=== PATIENT | female | born 1970 | race Hispanic/Latino ===

== ENCOUNTER 2020-12-01 08:45 | Inpatient (IN) | payer BC ==
--- NOTE | 2020-12-01 10:10 | RAD REPORT ---
EXAM DESCRIPTION: RAD - Chest Pa And Lat (2 Views) - 12/01/2020 9:50 am CLINICAL HISTORY: Cough;Dyspnearight-sided chest pain, low-grade fever COMPARISON: None TECHNIQUE: Frontal and lateral views of the chest were obtained. FINDINGS: The lungs are underinflated. Patchy opacification is present in the right upper lobe at t he aortic arch level. Interstitial markings are accentuated by the low lung volumes potentially maski ng edema and infiltrate. Heart size is normal and central vasculature is within normal limits. No pl eural effusion or pneumothorax seen. No acute bony finding noted. No aortic abnormality. IMPRESSION: Patchy right upper lobe opacification likely early right upper lobe pneumonia. Continued follow-up is needed after medical match to assureno persistent mass.
[2020-12-01 10:24] LABS: Absolute Lymphocytes (CBC) 0.8 K/uL (0.7-4.9); Basophils % 0.2 % (0-1.3); Hematocrit 44.8 % (36.0-45.0); Lymphocytes % 3.7 % (15.3-44.8); MPV 8.9 fL (7.6-11.3); RBC Red Blood Cell Count 5.04 M/uL (3.86-4.86)
[2020-12-01 10:36] LABS: Potassium 3.6 mmol/L (3.5-5.1)
[2020-12-01 10:54] LABS: Toxic Granulation 2+
[2020-12-01 10:55] LABS: Blood Morphology Comment NOT SEEN (NOT SEEN); Platelet Estimate ADEQ
[2020-12-01] MEDS ORDERED: NA CHLORIDE 0.9% 100 ML ONE (11:03)
[2020-12-01] MEDS ORDERED: CEFTRIAXONE/SWI 1gm 1 GM/10 ML SYR ONE (11:03)
--- NOTE | 2020-12-01 11:11 | ER ---
Nurse's Notes [facility] Name: Manuela Jones Age: 50 yrs Sex: Female : 1970 Arrival Date: 12/01/2020 Time: 08:47 Bed 4 Private MD: Diagnosis: Pneumonia, unspecified organism;Bandemia;Elevated white blood cell count Presentation: 12/01 09:04 Chief complaint: Patient states: SOB, congestion/cough, R sided lung pain for 3 days. ll1 Low grade fever at home. No N/V/D. SOB with exertion. Coronavirus screen: Client denies travel out of the [place] in the last 14 days. chills, congestion, cough unrelated to allergies, difficulty breathing, fatigue, fever, headache, shortness of breath, Client presents with at least one sign or symptom that may indicate coronavirus-19. Standard/surgical mask placed on the client. Ebola Screen: Patient denies travel to an Ebola-affected area in the 21 days before illness onset. Initial Sepsis Screen: Does the patient meet any 2 criteria? HR > 90 bpm. No. Patient's initial sepsis screen is negative. Does the patient have a suspected source of infection? Yes: Productive cough/pneumonia. Risk Assessment: Do you want to hurt yourself or someone else? Patient reports no desire to harm self or others. Onset of symptoms was November 29, 2020. 09:04 Method Of Arrival: Ambulatory [facility] 09:04 Acuity: IDALIA 2 ll1 Triage Assessment: 09:10 General: Appears in no apparent distress. uncomfortable, Behavior is cooperative, bp appropriate for age, anxious. Pain: Complains of pain in chest. EENT: No deficits noted. Neuro: No deficits noted. Cardiovascular: No deficits noted. Respiratory: Reports shortness of breath cough that is. GI: No signs and/or symptoms were reported involving the gastrointestinal system. : No signs and/or symptoms were reported regarding the genitourinary system. Derm: No signs and/or symptoms reported regarding the dermatologic system. Musculoskeletal: No deficits noted. Historical: - Allergies: 09:08 PENICILLINS; ll1 - PMHx: 09:08 Hypertension; Diabetes - IDDM; High Cholesterol; ll1 - PSHx: 09:08 reconstructive ear SX; Tonsillectomy; ll1 - Immunization history:: Client reports receiving the 2nd dose of the Covid vaccine, Flu vaccine is not up to date. - Social history:: Smoking status: Patient denies any tobacco usage or history of. Screenin:10 Abuse screen: Denies threats or abuse. Denies injuries from another. Nutritional bp screening: No deficits noted. Tuberculosis screening: No symptoms or risk factors identified. Fall Risk None identified. Assessment: 09:10 General: SEE TRIAGE. bp 10:30 Reassessment: RUL DEVELOPING PNEUMONIA, PT INFORMED BY LMP. bp 12:00 Reassessment: No changes from previously documented assessment. Patient and/or family bp updated on plan of care and expected duration. Pain level reassessed. Patient is alert, oriented x 3, equal unlabored respirations, skin warm/dry/pink. ADMIT INITIATED. 14:39 Reassessment: ADMIT COMPLETE, REPORT TO SCOOTER RASMUSSEN FOR RM 220. bp Vital Signs: 09:04 BP 165 / 72; Pulse 107; Resp 20; Temp 99.0; Pulse Ox 92% on R/A; Weight 165.56 kg; ll1 Height 5 ft. 9 in. (175.26 cm); Pain 6/10; 10:32 BP 139 / 88; Pulse 102; Resp 18; Pulse Ox 94% ; bp 12:00 BP 116 / 72; Pulse 100; Resp 20; Pulse Ox 93% on R/A; bp 14:00 BP 111 / 63; Pulse 98; Resp 19; Temp 99; Pulse Ox 100% ; bp 09:04 Body Mass Index 53.90 (165.56 kg, 175.26 cm) ll1 ED Course: 08:47 Patient arrived in ED. as 09:07 Triage completed. ll1 09:08 Arm band placed on Patient placed in an exam room, on a stretcher. ll1 09:09 Migel Marie, RN is Primary Nurse. bp 09:10 Patient has correct armband on for positive identification. Bed in low position. Call bp light in reach. Side rails up X2. 09:11 Joan Summers FNP-C is PHCP. kb 09:11 Michael Mccauley MD is Attending Physician. kb 09:50 Chest Pa And Lat (2 Views) XRAY In Process Unspecified. EDMS 10:00 Inserted saline lock: 20 gauge in left forearm, using aseptic technique. Blood bp collected. 11:10 Mingo Redman DO is Hospitalizing Provider. kb 14:40 No provider procedures requiring assistance completed. Patient admitted, IV remains in bp place. Administered Medications: 10:40 Drug: Rocephin (cefTRIAXone) 1 grams Route: IV; Rate: calculated rate; Site: left bp forearm; 11:17 Follow up: IV Status: Completed infusion; IV Intake: 100ml bp 11:17 Drug: Zithromax (azithromycin) 500 mg Route: IVPB; Infused Over: 1 hrs; Site: left bp antecubital; 14:48 Follow up: IV Status: Completed infusion; IV Intake: 250ml bp Intake: 11:17 IV: 100ml; Total: 100ml. bp 14:48 IV: 250ml; Total: 350ml. bp Outcome: 11:10 Decision to Hospitalize by Provider. kb 14:45 Transferred bp 14:45 Admitted to Tele accompanied by tech, via wheelchair, room 220, with chart, Report called to SCOOTER RASMUSSEN 14:45 Condition: stable 14:45 Instructed on the need for admit. 15:01 Patient left the ED. aa5 Signatures: Dispatcher [employer] EDMS Joan Summers, DRAG CAR RACER-C DRAG CAR RACER-Shruthi Obando Audri, RN RN aa5 Migel Marie, VALERY RN Teresita Clinton, VALERY RN ll1
--- NOTE | 2020-12-01 11:11 | EDPHYS ---
Physician Documentation [facility] Name: Manuela Jones Age: 50 yrs Sex: Female : 1970 Arrival Date: 12/01/2020 Time: 08:47 Bed 4 Private MD: ED Physician Michael Mccauley HPI: 12/01 09:29 This 50 yrs old Female presents to ER via Ambulatory with complaints of Cough kb - blood/lung pain. 09:29 The patient or guardian reports cough, that is intermittent, described as moderate, kb with no sputum, difficulty breathing. Onset: The symptoms/episode began/occurred 5 day(s) ago, and became worse yesterday. Severity of symptoms: At their worst the symptoms were moderate, in the emergency department the symptoms are unchanged. Modifying factors: The symptoms are alleviated by nothing, the symptoms are aggravated by nothing. Associated signs and symptoms: The patient has no apparent associated signs or symptoms. The patient has experienced a previous episode. The patient has not recently seen a physician. Pt reports cough, right lung pain, and shortness of breath that started 5 days ago. Hemoptysis started yesterday. Cough worse at night. Denies fever. States she had walking pneumonia a few years ago and this feels the same. Historical: - Allergies: 09:08 PENICILLINS; ll1 - PMHx: 09:08 Hypertension; Diabetes - IDDM; High Cholesterol; ll1 - PSHx: 09:08 reconstructive ear SX; Tonsillectomy; ll1 - Immunization history:: Client reports receiving the 2nd dose of the Covid vaccine, Flu vaccine is not up to date. - Social history:: Smoking status: Patient denies any tobacco usage or history of. ROS: 09:28 Constitutional: Negative for fever, chills, and weight loss. kb 09:28 Respiratory: Positive for cough, dyspnea on exertion, hemoptysis, pleurisy, of the "right lung", shortness of breath. 09:28 All other systems are negative. Exam: 09:28 Constitutional: This is a well developed, well nourished patient who is awake, alert, kb and in no acute distress. Head/Face: Normocephalic, atraumatic. ENT: Moist Mucous membranes Cardiovascular: Regular rate and rhythm with a normal S1 and S2. No gallops, murmurs, or rubs. No pulse deficits. Respiratory: Respirations even and unlabored. No increased work of breathing, no retractions or nasal flaring. Abdomen/GI: Soft, non-tender. No distention Skin: Warm, dry with normal turgor. Normal color. MS/ Extremity: Pulses equal, no cyanosis. Neurovascular intact. Full, normal range of motion. Neuro: Awake and alert, GCS 15, oriented to person, place, time, and situation. Moves all extremities. Normal gait. Psych: Awake, alert, with orientation to person, place and time. Behavior, mood, and affect are within normal limits. Vital Signs: 09:04 BP 165 / 72; Pulse 107; Resp 20; Temp 99.0; Pulse Ox 92% on R/A; Weight 165.56 kg; ll1 Height 5 ft. 9 in. (175.26 cm); Pain 6/10; 10:32 BP 139 / 88; Pulse 102; Resp 18; Pulse Ox 94% ; bp 12:00 BP 116 / 72; Pulse 100; Resp 20; Pulse Ox 93% on R/A; bp 14:00 BP 111 / 63; Pulse 98; Resp 19; Temp 99; Pulse Ox 100% ; bp 09:04 Body Mass Index 53.90 (165.56 kg, 175.26 cm) ll1 MDM: 09:11 Patient medically screened. kb 09:28 Data reviewed: vital signs, nurses notes. Data interpreted: Pulse oximetry: on room air kb is 92 %. Interpretation: acceptable. 11:07 Counseling: I had a detailed discussion with the patient and/or guardian regarding: the kb historical points, exam findings, and any diagnostic results supporting the discharge/admit diagnosis, lab results, radiology results, the need for further work-up and treatment in the hospital. Physician consultation: Mingo Redman DO was contacted at 11:07, regarding admission, to the medical/surgical unit. and will see patient in ED. 12/01 09:16 Order name: CBC with Diff; Complete Time: 11:00 kb 12/01 09:16 Order name: Basic Metabolic Panel; Complete Time: 10:36 kb 12/01 09:16 Order name: D-Dimer; Complete Time: 10:36 kb 12/01 09:16 Order name: Blood Culture Adult (2) kb 12/01 10:30 Order name: Manual Differential; Complete Time: 11:00 EDMS 12/01 11:09 Order name: COVID-19 : Document "Date of Symptom Onset" if Symptomatic. eb 12/01 09:08 Order name: Chest Pa And Lat (2 Views) XRAY; Complete Time: 10:18 kb 12/01 09:16 Order name: IV Start; Complete Time: 10:06 kb 12/01 13:35 Order name: SARS-COV-2 RT PCR; Complete Time: 13:37 EDMS Administered Medications: 10:40 Drug: Rocephin (cefTRIAXone) 1 grams Route: IV; Rate: calculated rate; Site: left bp forearm; 11:17 Follow up: IV Status: Completed infusion; IV Intake: 100ml bp 11:17 Drug: Zithromax (azithromycin) 500 mg Route: IVPB; Infused Over: 1 hrs; Site: left bp antecubital; 14:48 Follow up: IV Status: Completed infusion; IV Intake: 250ml bp Disposition: 17:33 Co-signature as Attending Physician, Michael Mccauley MD. rn Disposition: 12/01/20 11:10 Hospitalization ordered by Mingo Redman for Observation. Preliminary diagnosis are Pneumonia, unspecified organism, Bandemia, Elevated white blood cell count. - Bed requested for Telemetry/MedSurg (observation). - Status is Observation. aa5 - Condition is Stable. - Problem is new. - Symptoms are unchanged. Signatures: Dispatcher [employer] EDRI Joan Summers, RENAL TECHNICIAN-C RENAL TECHNICIAN-Ckb Michael Mccauley MD MD rn Calderon, Audri RN RN aa5 Migel Marie RN RN bp Botello, Elizabeth eb Lewis, Lynsay, RN RN ll1 Corrections: (The following items were deleted from the chart) 14:24 11:10 Hospitalization Ordered by Mingo Redman DO for Observation. Preliminary eb diagnosis is Pneumonia, unspecified organism; Bandemia; Elevated white blood cell count. Bed requested for Telemetry/MedSurg (observation). Status is Observation. Condition is Stable. Problem is new. Symptoms are unchanged. kb 14:25 14:24 12/01/2020 11:10 Hospitalization Ordered by Mingo Redman DO for Observation. eb Preliminary diagnosis is Pneumonia, unspecified organism; Bandemia; Elevated white blood cell count. Bed requested for Telemetry/MedSurg (observation). Status is Observation. Condition is Stable. Problem is new. Symptoms are unchanged. eb 15:01 14:25 12/01/2020 11:10 Hospitalization Ordered by Mingo Redman DO for Observation. aa5 Preliminary diagnosis is Pneumonia, unspecified organism; Bandemia; Elevated white blood cell count. Bed requested for Telemetry/MedSurg (observation). Status is Observation. Condition is Stable. Problem is new. Symptoms are unchanged. eb
[2020-12-01] MEDS ORDERED: AZITHROMYCIN 500 MG INJ IVPB ONE (11:32)
[2020-12-01] MEDS ORDERED: NA CHLORIDE 0.9% 250 ML ONE (11:33)
--- NOTE | 2020-12-01 13:03 | P.HP ---
Certification for Inpatient Patient admitted to: Observation With expected LOS: <2 Midnights Patient will require the following post-hospital care: None Practitioner: I am a practitioner with admitting privileges, knowledge of patient current condition, hospital course, and medical plan of care. Services: Services provided to patient in accordance with Admission requirements found in Title 42 Section 412.3 of the Code of Federal Regulations Patient History Date of Service: 12/01/20 Primary Care Provider: Dr. Chapa([place], [place]) Reason for admission: Fever, cough with hemoptysis History of Present Illness: 50-year-old female with history of diabetes mellitus type 2 insulin- dependent, hypertension, hyperlipidemia, and obesity. Patient presented to the emergency room with increasing cough, fever and hemoptysis. Patient reports that she has been having some difficulty with breathing as well since the past week. Some crackling to her lungs were noted. Today she noted a fever. She also reported some hemoptysis. She denied any significant chest pain, nausea, vomiting. No sick contacts noted has not done any recent travel. Patient is up-to-date with her COVID 19 vaccine which she got in August. Patient reports that she has an occasional smoker. In the ER patient was evaluated. Room-air saturations within normal range. But white count elevated at 23 with 9 bands. Hemoglobin 14.9, platelet count 144. D-dimer negative. Sodium 135, potassium 3.6. Being of 16, creatinine 0.8 with a GFR of 76. Glucose 301. X-ray showed right upper lobe pneumonia. Patient given IV antibiotic therapy in the emergency room. Due to her findings patient was admitted for further evaluation and observation. Patient currently visiting friend in the area. She gets most of her care in [facility] near [place]. Home medications list reviewed: Yes - Past Medical/Surgical History Diabetic: Yes -: Diabetes mellitus type 2 insulin-dependent -: Hypertension -: Hyperlipidemia -: Obesity -: Left ear reconstruction surgery -: Tonsillectomy Psychosocial/ Personal History: Patient is a . She is visiting in the area. - Family History Family History: Reviewed- Non-Contributory - Social History Smoking Status: Light Tobacco smoker (1-9 cigarettes/day) Counseled patient to stop smoking for: less than 10 minutes Smoking therapy provided: Yes Patient receptive to therapy: Yes Alcohol use: Yes CD- Drugs: No Caffeine use: Yes Place of Residence: Home Review of Systems General: Fever, Weakness, Malaise, As per HPI ENT: As per HPI Respiratory: Cough, Shortness of Breath, Hemoptysis, Wheezing, As per HPI Cardiovascular: Unremarkable Gastrointestinal: Unremarkable Genitourinary: Unremarkable Musculoskeletal: Unremarkable Integumentary: Unremarkable Neurological: Unremarkable Lymphatics: Unremarkable Physical Examination - Physical Exam General: Alert, In no apparent distress, Oriented x3, Cooperative HEENT: Atraumatic, Normocephalic, Other (Increased nasal drainage) Neck: Supple Respiratory: Diminished (To the right upper lobe) Cardiovascular: Normal pulses, Regular rate/rhythm Gastrointestinal: Normal bowel sounds, No tenderness, No masses, No rebound, No guarding Musculoskeletal: No erythema, No tenderness, No warmth Integumentary: No tenderness/swelling, No erythema, No warmth, No cyanosis Neurological: Normal speech, Normal strength at 5/5 x4 extr, Normal tone, Normal affect - Studies Laboratory Data (last 24 hrs) 12/01/20 10:00: Sodium 135 L, Potassium 3.6, BUN 16, Creatinine 0.80, Glucose 301 H 12/01/20 10:00: WBC 23.00 H*, Hgb 14.9, Hct 44.8, Plt Count 144 L Assessment and Plan - Plan Impression: Fever, hemoptysis secondary to right upper lobe pneumonia likely bacterial Diabetes mellitus type 2 insulin-dependent with hyperglycemia Hypertension Hyperlipidemia Obesity Plan: Fever, hemoptysis secondary to right upper lobe pneumonia likely bacterial: Patient will be admitted for further evaluation and treatment. Continue IVs Zithromax and Rocephin. Will obtain pro calcitonin. Sputum and blood cultures obtained. Will also obtain CT scan to further evaluate. Will consult pulmonology for further recommendation. Will provide IV fluids. Provide medication for cough. Provide incentive spirometer. Recheck chest x-ray tomorrow. Maintain oxygen above 93%. DVT prophylaxis-Lovenox in place. Anticipate improvement over the next 24 hr. Diabetes mellitus type 2 insulin-dependent with hyperglycemia: Will provide sliding scale. Will start basal insulin. Hypertension: Obtain and restart home medication. Hyperlipidemia: Obtain and restart home medication. Obesity: Will address lifestyle modification education. DVT prophylaxis: Lovenox Code status: Full code Advanced care planning-30 min: Patient plans to return back to [facility] on Thursday. Discharge Plan: Home Plan to discharge in: 48 Hours - Advance Directives Does patient have a Living Will: No Does patient have a Durable POA for Healthcare: No - Code Status/Comfort Care Code Status Assessed: Yes (Patient is full code) Time Spent Managing Pts Care (In Minutes): 55
[2020-12-01 15:31] VITALS: BMI 53.8
[2020-12-01] MEDS ORDERED: IPRATROPIUM BROM 0.5MG/2.5ML NEB PRN (17:18)
[2020-12-01] MEDS ORDERED: ALBUTEROL 2.5 MG/3 ML NEB SOL NEB PRN (17:18)
[2020-12-01] MEDS ORDERED: D50W 25 GM/50 ML SYRINGE IV PRN (17:18)
[2020-12-01] MEDS ORDERED: ACETAMINOPHEN 500 MG TAB PO PRN (17:18)
[2020-12-01] MEDS ORDERED: GLUCAGON 1 MG/VIAL IM PRN (17:18)
[2020-12-01] MEDS ORDERED: ONDANSETRON 4 MG/2 ML VIAL IV PRN (17:18)
[2020-12-01] MEDS ORDERED: BENZONATATE 100 MG CAP PO PRN (17:18)
[2020-12-01] MEDS: INSULIN -REGULAR HUMAN 50 UNIT/0.5 ML ML SQ SCH ×2 (18:28→21:33)
[2020-12-01] MEDS: NA CHLORIDE 0.9% 1,000 ML IV SCH (18:29)
[2020-12-01] MEDS: FAMOTIDINE 20 MG TAB PO SCH (21:32)
[2020-12-01] MEDS: INSULIN GLARGINE 100 UNITS/ML SQ SCH (21:34)
[2020-12-02 02:25] LABS: Urine Appearance CLOUDY (Clear); Urine Bilirubin NEGATIVE (Negative); Urine Blood TRACE (Negative); Urine Color YELLOW (Yellow); Urine Glucose 3+ (Negative); Urine Protein NEGATIVE (Negative); Urine Specific Gravity >=1.030 (1.005-1.030); Urine Urobilinogen 0.2 mg/dL (0.2-1.0); Urine pH 5.5 (5.0-7.0)
[2020-12-02 02:37] LABS: Urine Microscopic Reflex ORDER UMIC
[2020-12-02 03:11] LABS: Urine Bacteria 20-50 /HPF (<20); Urine Mucus 1+ /HPF (NONE SEEN); Urine RBC <5 /HPF (NONE SEEN)
[2020-12-02 03:12] LABS: Urine Yeast MANY (NONE SEEN)
[2020-12-02] MEDS: NA CHLORIDE 0.9% 1,000 ML IV SCH ×3 (04:18→22:37)
[2020-12-02 05:54] LABS: Absolute Lymphocytes (CBC) 2.2 K/uL (0.7-4.9); Basophils % 0.2 % (0-1.3); Hematocrit 40.5 % (36.0-45.0); Lymphocytes % 11.6 % (15.3-44.8); MPV 9.1 fL (7.6-11.3); RBC Red Blood Cell Count 4.51 M/uL (3.86-4.86)
--- NOTE | 2020-12-02 05:57 | P.PN ---
Subjective Date of Service: 12/02/20 Primary Care Provider: Dr. Chapa([place], [place]) Chief Complaint: Fever, cough with hemoptysis Subjective: Improving, Doing well (Currently on 2 L per nasal cannula) Physical Examination - Vital Signs Temperature: 97.4 F Blood Pressure: 123/59 Pulse: 89 Respirations: 18 Pulse Ox (%): 95 - Studies Laboratory Data (last 24 hrs) 12/01/20 10:00: Sodium 135 L, Potassium 3.6, BUN 16, Creatinine 0.80, Glucose 301 H 12/01/20 10:00: WBC 23.00 H*, Hgb 14.9, Hct 44.8, Plt Count 144 L Assessment & Plan Discharge Plan: Home Plan to discharge in: 48 Hours Physician Review Additional Text: CT scan: FINDINGS: Along the posterior aspect of the right upper lobe and small to moderate sized area of consolidated lung is present. There is a larger area of lung consolidation in the right lung base. The left lung is grossly clear. No pleural fluid is evident. Mildly prominent lymph nodes in the upper mediastinum. No concerning bony finding. Fatty liver. All CT scans are performed using dose optimization technique as appropriate and may include automated exposure control or mA/KV adjustment according to patient size. IMPRESSION: Small to moderate area of airspace consolidation posterior right upper lobe, and large area of airspace consolidation in the right lung base likely indicate infection/pneumonia.Follow-up imaging to ensure complete clearance is recommended. Follow up chest x-ray: COMPARISON: Chest Pa And Lat (2 Views) dated 12/01/2020 FINDINGS: Right upper lobe and right posterior lung base in full straight/pneumonia pattern appears mildly progressive since comparative study. The heart is normal in size. No displaced fractures. IMPRESSION: Mild worsening in right upper lobe and posterior right lung base infiltrate/pneumonia pattern. Physical exam: Patient alert, cooperative. No significant distress noted. Patient currently on 2 L per nasal cannula. Heart: Regular rate rhythm Lungs: Decreased to the right lung. Abdomen: Soft nontender nondistended Extremities: Good range of motion to the upper lower extremities Impression: Fever, hemoptysis secondary to right upper lobe pneumonia likely bacterial Diabetes mellitus type 2 insulin-dependent with hyperglycemia Hypertension Hyperlipidemia Obstructive sleep apnea Depression Obesity, BMI 53.9 Plan: Fever, hemoptysis secondary to right upper lobe pneumonia likely bacterial: Continue with IV antibiotic therapy. Patient requiring 2 L per nasal cannula. Continue to wean off oxygen. Provide medication for cough. Hemopytosis improved. Encourage incentive spirometer. Encourage ambulation. Continue IV fluids. Blood and sputum cultures obtained. Await results. Case discussed with pulmonology. Continue antibiotic treatment. Pulmonology to evaluate patient tomorrow. Will plan for discharge once the patient is able to get off of oxygen. Patient is from [facility]. Patient will need follow up closely with PCP or pulmonology near [place]. Patient can also follow up with pulmonology locally if needed. Anticipate discharge tomorrow if able to get off of oxygen. I will turn the service over to the hospitalist team tomorrow. I will go plan of care with him. Diabetes mellitus type 2 insulin-dependent with hyperglycemia: Will provide sliding scale. Continue with basal insulin. Hypertension: Will start Losartan. Hyperlipidemia: Continue home medication Obstructive sleep apnea: Continue with CPAP at home. Patient likely requires new machine. Recommend to follow up with PCP or pulmonology to further address. Depression: Continue with Lexapro. Obesity, BMI 53.9: Continue with lifestyle modification education. DVT prophylaxis: Lovenox Code status: Full code Advanced care planning-30 min: Patient is from [facility]. She is visiting in the area. Patient plans to follow up with PCP and possibly pulmonology there near [place]. Time Spent Managing Pts Care (In Minutes): 55
[2020-12-02 06:01] LABS: BUN Blood Urea Nitrogen 19 mg/dL (7-18); Bicarbonate 26 mmol/L (21-32); Glucose Level 166 mg/dL (74-106); Magnesium 2.2 mg/dL (1.8-2.4); Potassium 3.2 mmol/L (3.5-5.1); Sodium Level 136 mmol/L (136-145)
[2020-12-02] MEDS: ENOXAPARIN 40 MG/0.4 ML SQ SCH (09:00)
[2020-12-02] MEDS: AZITHROMYCIN IV 500 MG in NA CHLORIDE 0.9% 250 ML IVPB SCH (09:20)
[2020-12-02] MEDS: INSULIN GLARGINE 100 UNITS/ML SQ SCH ×2 (09:21→21:35)
[2020-12-02] MEDS: FOLIC ACID 1 MG TABLET PO SCH (09:21)
[2020-12-02] MEDS: FAMOTIDINE 20 MG TAB PO SCH ×2 (09:21→21:35)
[2020-12-02] MEDS: THIAMINE HCL 100 MG TABLET PO SCH (09:21)
[2020-12-02] MEDS: INSULIN -REGULAR HUMAN 50 UNIT/0.5 ML ML SQ SCH ×4 (09:22→21:35)
--- NOTE | 2020-12-02 11:02 | RAD REPORT ---
EXAM DESCRIPTION: CT - Thorax Wo Con CLINICAL HISTORY: Chest pain RUL pneumonia, hemopytosis COMPARISON: No comparisons FINDINGS: Along the posterior aspect of the right upper lobe and small to moderate sized area of con solidated lung is present. There is a larger area of lung consolidation in the right lung base. The l eft lung is grossly clear. No pleural fluid is evident. Mildly prominent lymph nodes in the upper mediastinum. No concerning bony finding. Fatty liver. All CT scans are performed using dose optimization technique as appropriate and may include automated exposure control or mA/KV adjustment according to patient size. IMPRESSION: Small to moderate area of airspace consolidation posterior right upper lobe, and large a hunter of airspace consolidation in the right lung base likely indicate infection/pneumonia.Follow-up im aging to ensure complete clearance is recommended.
--- NOTE | 2020-12-02 11:55 | RAD REPORT ---
EXAM DESCRIPTION: RAD - Chest Pa And Lat (2 Views) - 12/02/2020 12:59 am CLINICAL HISTORY: follow up Pneumonia, hemopytosis Chest pain. COMPARISON: Chest Pa And Lat (2 Views) dated 12/01/2020 FINDINGS: Right upper lobe and right posterior lung base in full straight/pneumonia pattern appears mildly progressive since comparative study. The heart is normal in size. No displaced fractures. IMPRESSION: Mild worsening in right upper lobe and posterior right lung base infiltrate/pneumonia pa ttern.
[2020-12-02] MEDS: CEFTRIAXONE/SWI 1gm 1 GM/10 ML SYR IV SCH (13:58)
[2020-12-03 04:39] LABS: Absolute Lymphocytes (CBC) 2.1 K/uL (0.7-4.9); Basophils % 0.3 % (0-1.3); Hematocrit 38.4 % (36.0-45.0); Lymphocytes % 15.6 % (15.3-44.8); RBC Red Blood Cell Count 4.35 M/uL (3.86-4.86)
[2020-12-03 04:47] VITALS: O2SAT 96
[2020-12-03 04:55] LABS: BUN Blood Urea Nitrogen 20 mg/dL (7-18); Bicarbonate 30 mmol/L (21-32); Glucose Level 106 mg/dL (74-106); Magnesium 2.4 mg/dL (1.8-2.4); Potassium 3.4 mmol/L (3.5-5.1); Sodium Level 141 mmol/L (136-145)
[2020-12-03] MEDS: INSULIN -REGULAR HUMAN 50 UNIT/0.5 ML ML SQ SCH ×3 (07:30→16:30)
[2020-12-03] MEDS: FOLIC ACID 1 MG TABLET PO SCH (08:51)
[2020-12-03] MEDS: FAMOTIDINE 20 MG TAB PO SCH (08:52)
[2020-12-03] MEDS: THIAMINE HCL 100 MG TABLET PO SCH (08:53)
[2020-12-03] MEDS: AZITHROMYCIN IV 500 MG in NA CHLORIDE 0.9% 250 ML IVPB SCH (08:54)
[2020-12-03] MEDS: ENOXAPARIN 40 MG/0.4 ML SQ SCH (08:54)
[2020-12-03] MEDS: INSULIN GLARGINE 100 UNITS/ML SQ SCH (08:54)
[2020-12-03] MEDS ORDERED: ESCITALOPRAM 20 MG TAB PO SCH (09:00)
[2020-12-03] MEDS ORDERED: MONTELUKAST 10 MG TAB PO SCH (09:00)
[2020-12-03] MEDS ORDERED: LOSARTAN POTASSIUM 50 MG TABLET PO SCH (09:00)
[2020-12-03] MEDS: CEFTRIAXONE/SWI 1gm 1 GM/10 ML SYR IV SCH (09:53)
[2020-12-03] MEDS: NA CHLORIDE 0.9% 1,000 ML IV SCH (11:18)
[2020-12-03 17:22] VITALS: BP 132/77; TEMP 97.1
--- NOTE | 2020-12-10 21:28 | P.CNS ---
Date of Consult: 12/02/20 Primary Care Provider: Dr. Chapa([place], [place]) Chief Complaint: Fever, cough with hemoptysis Allergies Penicillins Allergy (Severe, Verified 12/01/20 16:10) Anaphylaxis Home Medications: Dapagliflozin Propanediol [Farxiga] 1 tab PO DAILY 12/01/20 Escitalopram [Lexapro*] 20 mg PO DAILY 12/01/20 Insulin Regular, Human [Humulin R U-500 Kwikpen] See Protocol SQ TIDWMHS 12/01/20 Losartan/Hydrochlorothiazide [Losartan-Hctz 50-12.5 mg Tab] 1 tab PO DAILY 12/01/20 Montelukast [Singulair*] 1 tab PO DAILY 12/01/20 Simvastatin 40 mg PO BEDTIME 12/01/20 Sitagliptin Phos/Metformin HCl [Janumet 50-1,000 mg Tablet] 1 tab PO BID 0 12/01/20 Albuterol Inhaler [Ventolin Inhaler*] 2 puff IH Q6H PRN #1 hfa.aer.ad 12/03/20 Benzonatate [Tessalon Perle*] 100 mg PO Q6HP PRN #30 cap 12/03/20 Levofloxacin [Levaquin] 500 mg PO DAILY #7 tablet 12/03/20 Losartan Potassium [Cozaar*] 25 mg PO DAILY #15 tablet 12/03/20 Thiamine HCl [Vitamin B-1*] 100 mg PO DAILY #30 tablet 12/03/20 predniSONE [Deltasone] 20 mg PO DAILY #5 tab 12/03/20 - Past Medical/Surgical History Diabetic: Yes -: Diabetes mellitus type 2 insulin-dependent -: Hypertension -: Hyperlipidemia -: Obesity -: Left ear reconstruction surgery -: Tonsillectomy Psychosocial/ Personal History: Patient is a . She is visiting in the area. - Social History Alcohol use: Yes CD- Drugs: No Caffeine use: Yes Place of Residence: Home Physical Examination Temp Pulse Resp BP Pulse Ox 97.1 F 78 19 132/77 95 12/03/20 16:00 12/03/20 16:00 12/03/20 16:00 12/03/20 16:00 12/03/20 16:00
== END 2020-12-03 16:46 | disposition home or self-care (01) | DRG 194 ==
LOC: ER 08:45 → ERHOLD 11:42 → 2ND 14:39 → OBSVTOIN 12-02 08:51
PROVIDERS: ADMIT Family Medicine; ATTEND Family Medicine
DX: J15.9 Unspecified bacterial pneumonia (principal); R04.2 Hemoptysis; Z68.43 Body mass index [BMI] 50.0-59.9, adult; E11.65 Type 2 diabetes mellitus with hyperglycemia; I10 Essential (primary) hypertension; E78.5 Hyperlipidemia, unspecified; G47.33 Obstructive sleep apnea (adult) (pediatric); F32.9 Major depressive disorder, single episode, unspecified; E66.9 Obesity, unspecified; Z20.822 Contact with and (suspected) exposure to COVID-19
CPT/HCPCS: 36415; 71046; 71250; 80048; 81003; 81015; 82947; 83735; 84145; 85025; 85379; 87040; 87070; 87086; 87088; 87205; 99285; G0378; J0456; J0696; J1650; J1815; J7030; J7050; U0003